=== PATIENT | female | born 1995 | race Caucasian/White ===

== ENCOUNTER 2018-05-02 21:55 | Emergency (ER) | END 2018-05-03 00:58 | disposition home or self-care (01) ==

== ENCOUNTER 2019-04-29 14:18 | Emergency (ER) | payer SELFPAY ==
[~2019-04-29] VITALS: Ht 152.4 cm; Wt 83.5 kg
[~2019-04-29 14:18] MED LIST: AMOX500C2 PO; FAMO40TA66 PO; IBUP-1542 PO
[2019-04-29 14:20] VITALS: BP 109/66; PULSE 66; RESP 18; Ht 152.4 cm; Wt 83.5 kg
[2019-04-29] MEDS ORDERED: LIDOCAINE/MYLANTA 40 ML BTL PO STA (14:40)
[2019-04-29] MEDS ORDERED: BELLADONNA/PHENOBARBITAL TAB PO STA (14:40)
== END 2019-04-29 16:26 | disposition home or self-care (01) ==
LOC: FTE 14:18
DX: R10.13 Epigastric pain (principal)
CPT/HCPCS: 36415; 80053; 81001; 81003; 81025; 83690; 85025; 99283